=== PATIENT | male | born 1955 | race Caucasian/White ===

== ENCOUNTER 2017-08-10 10:18 | Emergency (ER) | payer BC ==
[2017-08-10] MEDS ORDERED: Sodium Chloride 0.9% 2.5 ML Syringe FLUSH PRN (10:23)
[2017-08-10] MEDS ORDERED: Sodium Chloride 0.9% 10 ML Syringe FLUSH PRN (10:23)
[2017-08-10] MEDS ORDERED: Ondansetron 4 MG/2 ML SDV IVPUSH ONE (10:30)
[2017-08-10] MEDS ORDERED: Sodium Chloride 0.9% 1,000 ML IV STA (10:30)
[2017-08-10 11:06] LABS: CHLORIDE,CL 106 mmol/L (98-110); SODIUM,NA 138 mmol/L (136-146)
--- NOTE | 2017-08-10 11:12 | EDM.PDOC ---
ED HPI GENERAL MEDICAL PROBLEM - General Chief Complaint: Neuro Symptoms/Deficits Stated Complaint: DIZZY Time Seen by Provider: 08/10/17 10:30 Source of Information: Reports: Patient History Limitations: Reports: No Limitations - History of Present Illness INITIAL COMMENTS - FREE TEXT/NARRATIVE: HISTORY AND PHYSICAL: History of present illness: Patient is a 61-year-old male who presents to the emergency room with complaints of dizziness, blurred vision, nausea since Thursday. Reports that Thursday morning he was working on a singh then and "pulled some back muscles". He proceeded to go on the house and was resting on his chair and got up to walk and became dizzy with blurred vision. As soon as he sat down he said the dizziness subsided still slight blurred vision but became nauseated at rest. Observed the patient ambulates into the room and he does appear unsteady on his feet. There are no neurological deficits, weakness, slurred speech or motor function deficits. Occasional alcohol use, denies any drug use including marijuana. Denies any recent head injury or trauma. Denies any chest pain, shortness of breath, headache, fever or chills. Patient denies any previous health concerns or surgical history and does not take any prescribed or [id number] medications. Review of systems: As per history of present illness and below otherwise all systems reviewed and negative. Past medical history: As per history of present illness and as reviewed below otherwise noncontributory. Surgical history: As per history of present illness and as reviewed below otherwise noncontributory. Social history: No reported history of drug or alcohol abuse. Family history: As per history of present illness and as reviewed below otherwise noncontributory. Physical exam: Gen.: Well-developed and well-nourished 61-year-old male. Able to speak in full sentences without shortness of breath. Alert and oriented. HEENT: Atraumatic, normocephalic, pupils equal and reactive bilaterally, 3mm, negative for conjunctival pallor or scleral icterus, mucous membranes moist, throat clear, neck supple, nontender, trachea midline. No lymphadenopathy. Lungs: Clear to auscultation, breath sounds equal bilaterally, chest nontender. Heart: S1S2, regular rate and rhythm Abdomen: Soft, nondistended, nontender. Negative for masses or hepatosplenomegaly. Negative for costovertebral tenderness. Pelvis: Stable nontender. Genitourinary: Deferred. Rectal: Deferred. Extremities: Atraumatic, negative for cords or calf pain. Neurovascular unremarkable. Neuro: Awake, alert, oriented. Cranial nerves II through XII unremarkable. Cerebellum unremarkable. Motor and sensory unremarkable throughout. Exam nonfocal. All labs and CT results were reviewed by me. At this time his findings are relatively normal. Meclizine has been ordered while patient continues to receive his IV fluids. Discussed with patient the option of admission. Patient states he would like to sit and allow the meclizine to work at this time and in 30 minutes he would like to try to ambulate and see if his symptoms have improved. I will order a second liter of fluid and reevaluate the patient's after that is completed. If patient still is symptomatic he is agreeable for admission at that time. Patient received his IV fluids and states he feels somewhat better. He would like to be discharged to home. We did discuss possible risks of being discharged to home, patient voices understanding and reports that if his symptoms worsen or does not feel improved he will come back to the emergency room. is having bedside and is agreeable as well. Prescription for Zofran ODT and meclizine. Patient will follow-up with a primary care provider in the next 1-2 days. Neuorolgy referal was given as well Diagnostics: CBC, CMP, troponin, EKG, head CT Therapeutics: IV fluid and Zofran Meclizine Impression: Vertigo Nausea Plan: 1. Please take your medications as prescribed. 2. Please follow up with an diesel tractor engine mechanic to discuss your blurred vision, may need detailed eye exam. Follow-up with your primary care provider in the next 1- 2 days. A neurology referral has been given. 3. You declined admission at this time. As we discussed if your symptoms worsen or he develop new symptoms please return to the ED. Definitive disposition and diagnosis as appropriate pending reevaluation and review of above. Onset Date: 08/08/17 Duration: Day(s): - Related Data Allergies Allergy/AdvReac Type Severity Reaction Status Date / Time No Known Allergies Allergy Verified 08/10/17 10:26 Home Meds: Home Meds . [No Known Home Meds] 08/10/17 [History] Past Medical History - Past Health History Medical/Surgical History: Denies Medical/Surgical History Social & Family History - Family History Family Medical History: Noncontributory - Tobacco Use Smoking Status *Q: Never Smoker Second Hand Smoke Exposure: No - Caffeine Use Caffeine Use: Reports: Coffee - Alcohol Use Days Per Week of Alcohol Use: 3 Number of Drinks Per Day: 6 Total Drinks Per Week: 18 - Recreational Drug Use Recreational Drug Use: No ED ROS GENERAL - Review of Systems Review Of Systems: ROS reveals no pertinent complaints other than HPI. ED EXAM, NEURO - Physical Exam Exam: See Below Course - Vital Signs Last Recorded V/S: Last Vital Signs Temp 36.1 C 08/10/17 10:24 Pulse 71 08/10/17 10:24 Resp 18 08/10/17 10:24 BP 176/84 H 08/10/17 10:24 Pulse Ox 97 08/10/17 10:24 - Orders/Labs/Meds Orders: Active Orders 24 hr Category Date Time Status EKG 12 Lead [EKG Documentation Completion] [RC] STAT Care 08/10/17 10:48 Active Sodium Chloride 0.9% [Normal Saline] 1,000 ml Med 08/10/17 12:18 Active IV STAT Sodium Chloride 0.9% [Saline Flush] Med 08/10/17 10:23 Active 10 ml FLUSH ASDIRECTED PRN Sodium Chloride 0.9% [Saline Flush] Med 08/10/17 10:23 Active 2.5 ml FLUSH ASDIRECTED PRN Saline Lock Insert [OM.PC] Stat Oth 08/10/17 10:23 Ordered Medication Orders Sodium Chloride (Normal Saline) 1,000 mls @ 999 mls/hr IV STAT ONE Stop: 08/10/17 13:18 Last Admin: 08/10/17 12:21 Dose: 999 mls/hr Sodium Chloride (Saline Flush) 10 ml FLUSH ASDIRECTED PRN PRN Reason: Keep Vein Open Sodium Chloride (Saline Flush) 2.5 ml FLUSH ASDIRECTED PRN PRN Reason: Keep Vein Open Labs: Laboratory Tests 08/10/17 08/10/17 08/10/17 Range/Units 10:28 10:28 10:28 WBC 5.92 (4.0-11.0) K/uL RBC 5.11 (4.50-5.90) M/uL Hgb 15.6 (13.0-17.0) g/dL Hct 46.7 (38.0-50.0) % MCV 91.4 (80.0-98.0) fL MCH 30.5 (27.0-32.0) pg MCHC 33.4 (31.0-37.0) g/dL RDW Std Deviation 42.2 (28.0-62.0) fl RDW Coeff of Sheldon 13 (11.0-15.0) % Plt Count 178 (150-400) K/uL MPV 9.90 (7.40-12.00) fL Neut % (Auto) 69.3 (48.0-80.0) % Lymph % (Auto) 23.3 (16.0-40.0) % Trinity % (Auto) 5.4 (0.0-15.0) % Eos % (Auto) 1.5 (0.0-7.0) % Baso % (Auto) 0.5 (0.0-1.5) % Neut # (Auto) 4.1 (1.4-5.7) K/uL Lymph # (Auto) 1.4 (0.6-2.4) K/uL Trinity # (Auto) 0.3 (0.0-0.8) K/uL Eos # (Auto) 0.1 (0.0-0.7) K/uL Baso # (Auto) 0.0 (0.0-0.1) K/uL Nucleated RBC % 0.0 /100WBC Nucleated RBCs # 0 K/uL Sodium 138 (136-146) mmol/L Potassium 3.9 (3.5-5.1) mmol/L Chloride 106 (98-110) mmol/L Carbon Dioxide 21 (21-31) mmol/L BUN 16 (6.0-23.0) mg/dL Creatinine 1.0 (0.6-1.5) mg/dL Est Cr Clr Drug Dosing 87.30 mL/min Estimated GFR (MDRD) > 60.0 ml/min Glucose 123 H (60-110) mg/dL Calcium 9.5 (8.8-10.8) mg/dL Total Bilirubin 0.6 (0.1-1.5) mg/dL AST 16 (5-40) IU/L ALT 15 (8-54) IU/L Alkaline Phosphatase 45 (40-150) Troponin I < 0.10 (0.0-0.29) NG/ML Total Protein 7.6 (6.0-8.0) g/dL Albumin 4.1 (3.5-5.0) g/dL Globulin 3.5 (2.0-3.5) g/dL Albumin/Globulin Ratio 1.2 L (1.3-2.8) Meds: Medications Generic Name Dose Route Start Last Admin Trade Name Freq PRN Reason Stop Dose Admin Sodium Chloride 1,000 mls @ 999 mls/hr 08/10/17 12:18 08/10/17 12:21 Normal Saline IV 08/10/17 13:18 999 mls/hr STAT ONE Administration Sodium Chloride 10 ml 08/10/17 10:23 Saline Flush FLUSH ASDIRECTED PRN Keep Vein Open Sodium Chloride 2.5 ml 08/10/17 10:23 Saline Flush FLUSH ASDIRECTED PRN Keep Vein Open Discontinued Medications Generic Name Dose Route Start Last Admin Trade Name Freq PRN Reason Stop Dose Admin Sodium Chloride 1,000 mls @ 999 mls/hr 08/10/17 10:30 08/10/17 10:34 Normal Saline IV 08/10/17 11:30 999 mls/hr NOW STA Administration Meclizine HCl 25 mg 08/10/17 11:46 08/10/17 12:05 Antivert PO 08/10/17 11:47 25 mg ONETIME ONE Administration Ondansetron HCl 4 mg 08/10/17 10:30 08/10/17 10:34 Zofran IVPUSH 08/10/17 10:31 4 mg ONETIME ONE Administration Departure - Departure Time of Disposition: 13:09 Disposition: Home, Self-Care 01 Clinical Impression: Dizziness, Nausea - Discharge Information Referrals: PCP,None [Primary Care Provider] - Forms: ED Department Discharge Additional Instructions: My general discharge The following information is given to patients seen in the emergency department who are being discharged to home. This information is to outline your options for follow-up care. We provide all patients seen in our emergency department with a follow-up referral. The need for follow-up, as well as the timing and circumstances, are variable depending upon the specifics of your emergency department visit. If you don't have a primary care physician on staff, we will provide you with a referral. We always advise you to contact your personal physician following an emergency department visit to inform them of the circumstance of the visit and for follow-up with them and/or the need for any referrals to a consulting specialist. The emergency department will also refer you to a specialist when appropriate. This referral assures that you have the opportunity for follow-up care with a specialist. All of these measure are taken in an effort to provide you with optimal care, which includes your follow-up. Under all circumstances we always encourage you to contact your private physician who remains a resource for coordinating your care. When calling for follow-up care, please make the office aware that this follow-up is from your recent emergency room visit. If for any reason you are refused follow-up, please contact the [facility] Emergency Department at and asked to speak to the emergency department charge nurse. [facility] [address] [place] [id number] [facility] - Neurology Professional Building [address] [place] [address], [address] [place] [address] 1. Please take your medications as prescribed. Meclizine for dizziness and Zofran for nausea. 2. Please follow up with an diesel tractor engine mechanic to discuss your blurred vision, may need detailed eye exam. Follow-up with your primary care provider in the next 1- 2 days. A neurology referral has been given. 3. You declined admission at this time. As we discussed if your symptoms worsen or he develop new symptoms please return to the ED - My Orders Last 24 Hours: My Active Orders 08/10/17 10:23 Sodium Chloride 0.9% [Saline Flush] 10 ml FLUSH ASDIRECTED PRN Sodium Chloride 0.9% [Saline Flush] 2.5 ml FLUSH ASDIRECTED PRN Saline Lock Insert [OM.PC] Stat 08/10/17 10:48 EKG 12 Lead [EKG Documentation Completion] [RC] STAT 08/10/17 12:18 Sodium Chloride 0.9% [Normal Saline] 1,000 ml IV STAT - Assessment/Plan Last 24 Hours: My Active Orders 08/10/17 10:23 Sodium Chloride 0.9% [Saline Flush] 10 ml FLUSH ASDIRECTED PRN Sodium Chloride 0.9% [Saline Flush] 2.5 ml FLUSH ASDIRECTED PRN Saline Lock Insert [OM.PC] Stat 08/10/17 10:48 EKG 12 Lead [EKG Documentation Completion] [RC] STAT 08/10/17 12:18 Sodium Chloride 0.9% [Normal Saline] 1,000 ml IV STAT
--- NOTE | 2017-08-10 11:31 | CT ---
EXAMINATION: Non contrast CT head. Coronal and sagittal reformats. HISTORY: Blurred vision FINDINGS: No evidence of intra or extra axial hemorrhage, mass, midline shift, hydrocephalus or edema. No hyp oattenuation changes in the major vascular territories to suggest acute infarct. No abnormal intracranial calcifications are detected. No evidence of substantial vascular calcificat ions. Small mucous retention cyst noted within the left maxillary sinus. There is thickening of the mid left inferior rectus muscle. The orbits otherwise appear unremarkable. Pituitary fossa appears unremarkable. The calvarium is intact. No evidence of skull fracture. IMPRESSION: 1. No acute intracranial findings. 2. Nonspecific thickening of the mid aspect of the left inferior rectus muscle, of uncertain signific ance.
[2017-08-10] MEDS ORDERED: Meclizine 25 MG Tab PO ONE (11:46)
[2017-08-10] MEDS ORDERED: Sodium Chloride 0.9% 1,000 ML IV ONE (12:18)
== END 2017-08-10 13:53 | disposition home or self-care (01) ==
LOC: MW.ED 10:18
DX: R42 Dizziness and giddiness (principal); R11.0 Nausea
CPT/HCPCS: 36415; 70450; 80053; 84484; 85025; 93005; 96361; 96374; 99284; A9270; J2405; J7040

== ENCOUNTER 2022-10-12 17:19 | Emergency (ER) | payer MEDICARE, BC ==
[2022-10-12 18:05] LABS: CARBON DIOXIDE,CO2 29.5 mmol/L (21.0-32.0); POTASSIUM,K 3.7 mmol/L (3.5-5.1)
[2022-10-12 18:32] LABS: CORONAVIRUS COVID-19 NAA NEGATIVE (NEGATIVE); INFLUENZA A NAA NEGATIVE (NEGATIVE); INFLUENZA B NAA NEGATIVE (NEGATIVE)
== END 2022-10-12 18:50 ==
LOC: MW.ED 17:19
DX: I21.4 Non-ST elevation (NSTEMI) myocardial infarction (principal); I10 Essential (primary) hypertension; I25.10 Atherosclerotic heart disease of native coronary artery without angina pectoris; Z79.01 Long term (current) use of anticoagulants; Z20.822 Contact with and (suspected) exposure to COVID-19
CPT/HCPCS: 0240U; 36415; 71045; 80053; 83735; 84484; 85025; 85610; 85730; 99285